=== PATIENT | female | born 1985 | race Caucasian/White ===

== ENCOUNTER 2017-07-02 19:45 | Emergency (ER) | payer MEDICAID ==
[2017-07-02 19:53] VITALS: BP 121/69; BMI 32.5
[2017-07-02 20:34] LABS: BILIRUBIN,URINE NEGATIVE (NEGATIVE); BLOOD/HEMOGLOBIN,URINE NEGATIVE (NEGATIVE); GLUCOSE, URINE NEGATIVE (NEGATIVE); KETONES,URINE NEGATIVE (NEGATIVE); LEUKOCYTE ESTERASE ,URINE NEGATIVE (NEGATIVE); NITRITES,URINE NEGATIVE (NEGATIVE); PROTEIN,URINE NEGATIVE (NEGATIVE); UROBILINOGEN,URINE NORMAL (NORMAL)
--- NOTE | 2017-07-02 20:37 | DR.GENAD ---
HPI - PCP Primary Care Physician: NFD - HPI Comment HPI Comment: PATIENT IS 6 WEEKS AND HAVING ABDOMINAL PAIN. NO VAGINAL BLEEDING. HAVE HAD MISCARRIAGES BEFORE. NAUSEATED AND WEAK. - Complaint/Symptoms Chief Complaint Doctors Comments: AND HAVING ABDOMINAL PAIN. Chief Complaint:: PT STATES" I TOOK A TEST LAST WEEK IT WAS POSITIVE AND TODAY I STARTED CRAMPING I'M NOT BLEEDING OR ANYTHING" PT HAS NOT SEEN OB/ DOT COMPLIANCE SPECIALIST DUE TO NO INSURANCE - Nurses notes reviewed Nurses Notes Review: Yes - Source History Provided: Parent - Mode of Arrival Mode of Arrival: Ambulatory - Timing Onset of Chief Complaint: 07/02/17 Came on: Suddenly - Duration Duration: Constant Duration: Days - Severity Severity: Moderate PMH - PMH Past Medical History: No Past Surgical History: Yes Surgical History: Appendectomy - Family History History of Family Medical Conditions: Yes Family Medical History: Diabetes Mellitus - Social History Type of Tobacco Use: Cigarettes Does any household member use tobacco: No Alcohol Use: None Do you use any recreational Drugs:: No Lives With: Family Lives Where: Home - infectious screening In the last 2 months have you had wt loss of >10#?: NO Have you had fever, night sweats or hemotysis?: No Have you traveled outside the country in the last 6 months?: No Isolation: Standard ROS - Review of Systems Constitutional: Weakness, Fatigue Eyes: negative: Eye Pain, Discharge ENTM: negative: Ear Pain, Nose Discharge, Nose Congestion, Throat Pain Respiratoy: No Symptoms Reported. negative: Non-Productive Cough, Short of Breath, Wheezing, Hemoptysis Cardiovascular: No Symptoms Reported Gastrointestinal/Abdominal: Abdominal Pain, Nausea Genitourinary: No Symptoms Reported Neurological: No Symptoms Reported Musculoskeletal: No Symptoms Reported Integumentary: No Symptoms Reported Hematologic/Lymphatic: No Symptoms Reported Endocrine: No Symptoms Reported All Other Systems: Reviewed and Negative PE - Vital Signs Vitals: Temperature 97.6 F Pulse Rate 100 Respiratory Rate 18 Blood Pressure 121/69 O2 Sat by Pulse Oximetry 99 - General Limitations: No Limitations General Appearance: Alert - Head Head Exam: Normal Inspection - Eyes Eye exam: Normal Appearance - ENT ENT Exam: Normal External Ear Exam External Ear Exam: Normal External Inspection TM/Canal Exam: Bilateral Normal Mouth Exam: Normal Inspection Throat Exam: Normal Inspection - Neck Neck Exam: Normal Inspection - Chest Chest Inspection: Symmetric Chest Wall Rise - Respiratory Respiratory Exam: Normal Lung Sounds Bilat Respiratory Exam: Bilateral Clear to Auscultation - Cardiovascular Cardiovascular Exam: Regular Rate, Normal Rhythm, Normal Heart Sounds - Abdominal Exam Abdominal Exam: Normal Bowel Sounds, Soft, Tenderness Abdominal Tenderness: RLQ, LLQ, Mild - Extremities Extremities Exam: Normal Inspection - Back Back Exam: Normal Inspection - Neurologic Neurological Exam: Alert, Oriented X3 - Psychiatric Psychiatric Exam: Normal Affect, Normal Mood, Anxious, Homicidal Ideation - Skin Skin Exam: Normal Color [facility] - Additional Information Additional Information Obtained From: Family - Differential Diagnosis Differential Diagnosis: , ECTOPIOC , ABDOMINAL PAIN IN FIRST TRIMESTER, Course - Treatment Treatment: SEE ORDERS - Education/Counseling Education/Counseling: Patient, Education Educated On: Diagnosis, Needs for Follow Up ROR - Labs Reviewed Laboratory Results Reviewed?: Yes Laboratory: HCG, Quant 94712 mIU/mL (0-6) H 07/02/17 20:24 Specimen Type Clean catch urine 07/02/17 20:17 Urine Color Yellow (YELLOW) 07/02/17 20:17 Urine Appearance Clear (CLEAR) 07/02/17 20:17 Urine pH 6.0 (5.0 - 8.0) 07/02/17 20:17 Ur Specific [place] 1.020 (1.000-1.030) 07/02/17 20:17 Urine Protein Negative (NEGATIVE) 07/02/17 20:17 Urine Glucose (UA) Negative (NEGATIVE) 07/02/17 20:17 Urine Ketones Negative (NEGATIVE) 07/02/17 20:17 Urine Occult Blood Negative (NEGATIVE) 07/02/17 20:17 Urine Nitrite Negative (NEGATIVE) 07/02/17 20:17 Urine Bilirubin Negative (NEGATIVE) 07/02/17 20:17 Urine Urobilinogen Normal (NORMAL) 07/02/17 20:17 Ur Leukocyte Esterase Negative (NEGATIVE) 07/02/17 20:17 Urine RBC 0-2 /HPF (NEGATIVE) 07/02/17 20:17 Urine WBC 0-2 /HPF (NEGATIVE) 07/02/17 20:17 Ur Squamous Epith Cells Rare /HPF (NEGATIVE) 07/02/17 20:17 Urine Bacteria Trace /HPF (NEGATIVE) 07/02/17 20:17 Ur Culture Indicated? No/not indicated 07/02/17 20:17 - XRAY XRAY Interpreted by: Radiologist XRAY Findings: REPORT DISCUSS WITH PATIENT. - Diagnosis Discharge Problem: Abdominal pain affecting - Discharge Plan Disposition: 01 HOME, SELF-CARE Condition: Stable Prescriptions: Promethazine HCl [PHENERGAN TAB 25 MG *] 25 mg PO Q6H PRN #12 tab PRN Reason: Nausea/Vomiting - Follow ups/Referrals Follow ups/Referrals: NFD,None [Primary Care Provider] - 2 days PAMELA FLETCHER [STAFF PHYSICIAN] - 2 days - Instructions Instructions: Nausea, Adult, Abdominal Pain During , [id number] Additional Instructions: RETURN TO ED IF WORSE.
[2017-07-02 20:41] LABS: APPEARANCE,URINE CLEAR (CLEAR); COLOR,URINE YELLOW (YELLOW)
[2017-07-02 20:42] LABS: BACTERIA,URINE TRACE /HPF (NEGATIVE); RBC,URINE 0-2 /HPF (NEGATIVE); SQUAMOUS EPITHELIAL CELL,UR RARE /HPF (NEGATIVE)
--- NOTE | 2017-07-02 22:24 | US ---
History: 31-year-old female with cramping. Exam: Pelvic ultrasound Comparison: None. Technique: Multiple grayscale and color flow Doppler images of the pelvis were obtained. Findings: The uterus contains a single intrauterine with a gestational sac measuring 37 mm foreign EG A of 8 weeks 6 days with a crown-rump length of 9 mm foreign EGA of 6 weeks 6 days and yolk sac measu ring 5 mm. heart tones of 163 beats per minute. ENRIQUE of 02/12/2018. No evidence for myometrial masses or calcifications observed. The right and left adnexa are unremarkable. The echotexture of t he right and left ovaries are unremarkable. The right and left ovaries are normal in size. The right ovary measures 3.5 x 3 cm. The left ovary measures 3 x 2.5 cm. No adnexal mass or free fluid can be identified. IMPRESSION: 1. Single intrauterine with heart rate of 163 beats per minute with average gestatio nal age of 7 weeks 6 days for an ENRIQUE of 02/12/2018. Follow-up with OB. Reported By:
== END 2017-07-02 22:42 | disposition home or self-care (01) ==
LOC: ER 20:10
DX: R10.84 Generalized abdominal pain (principal); Z3A.01 Less than 8 weeks gestation of pregnancy
CPT/HCPCS: 36415; 76801; 81001; 84702; 99284